=== PATIENT | female | born 1990 | race Caucasian/White ===

== ENCOUNTER 2021-08-15 16:54 | Observation (INO) ==
[2021-08-15 10:48] LABS: Basophils % 0.2 %; Eosinophils # 0.1 K/mcL (0.0-0.6); Eosinophils % 0.5 %; Hematocrit 37.6 % (35.3-44.9); Hemoglobin 12.4 g/dL (11.5-15.4); Immature Granulocytes % 0.6 % (0-4); Lymphocytes # 1.3 K/mcL (0.6-4.6); Lymphocytes % 13.6 %; Mean Corpuscular Hemoglobin 30.2 pg (28.0-33.3); Mean Corpuscular Volume 91.7 fL (83.0-100.0); Mean Platelet Volume 10.1 fL (9.4-12.4); Monocytes # 0.6 K/mcL (0.0-1.3); Monocytes % 6.1 %; Neutrophils # 7.8 K/mcL (1.6-8.9); Platelet Count 165 K/mcL (140-400); Red Cell Distribution Width 14.6 % (11.5-14.5); White Blood Count 9.8 K/mcL (4.3-11.1)
[2021-08-15 10:56] LABS: Amphetamine Screen,Urine Negative ng/mL (Cutoff=1000); Barbiturate Screen,Urine Negative ng/mL (Cutoff=200); Benzodiazepines Screen,Urine Negative ng/mL (Cutoff=200); Cannabinoid Screen,Urine Negative ng/mL (Cutoff = 50); Cocaine Screen,Urine Negative ng/mL (Cutoff= 300); Opiate Screen,Urine Negative ng/mL (Cutoff=300); Phencyclidine Screen,Urine Negative ng/mL (Cutoff=25)
[2021-08-15 11:23] LABS: Influenza A PCR Negative (Negative); Influenza B PCR Negative (Negative); Resp. Syncytial Virus PCR Negative (Negative); SARS-CoV-2 by PCR (In House) Negative (Negative)
[~2021-08-15 16:54] MED LIST: *HR* FentaNYL (PF) 100 MCG/2 ML VIAL IVP PRN; *HR* FentaNYL (PF) 100 MCG/2 ML VIAL ONE; *HR* Morphine Sulfate/PF 10 MG/10 ML AMPUL ONE; *HR* OxyCODONE Immed Rel 5 MG TABLET PO PRN; *HR* Phenylephrine 10 MG/ML VIAL ONE; Acetaminophen IV 1,000 MG/100 ML BAG IVPB ONE; Azithromycin 500 MG in 0.9 % Sodium Chloride 250 ML IVPB PRN; Betamethasone Acet/SodPhos 30 MG/5 ML VIAL IM SCH; CeFAZolin 2,000 MG/120 ML BAG IVPB ONE; D5% in 0.45% NACL 1,000 ML IVC SCH; EPHEDrine 50 MG/ML VIAL ONE; FLU Vac QV 21-22 (6Month+)/PF 0.5 ML SYRINGE IM ONE; Famotidine 20 MG/2 ML VIAL IVP ONE; Famotidine 20 MG/2 ML VIAL IVP PRN; Ketorolac 30 MG/ML VIAL ONE; Metoclopramide 10 MG/2 ML VIAL IVP ONE; Metoclopramide 10 MG/2 ML VIAL IVP PRN; Naloxone 0.4 MG/ML INJ IVP PRN; Ondansetron 4 MG/2 ML VIAL IVP PRN; Ondansetron 4 MG/2 ML VIAL ONE; Promethazine 6.25 MG in Water for inj. (sterile) 20 ML IVPB PRN; Ringers Solution, Lactated 1,000 ML IVC ONE; Ringers Solution, Lactated 1,000 ML ONE
[2021-08-15] MEDS ORDERED: Ringers Solution, Lactated 1,000 ML IVC SCH (17:15)
[2021-08-15] MEDS ORDERED: Ondansetron 4 MG/2 ML VIAL IVP PRN (17:15)
[2021-08-15] MEDS ORDERED: Simethicone 80 MG TAB.CHEW PO PRN (17:15)
[2021-08-15] MEDS ORDERED: Oxytocin 20 units/ LR 1000 mL 20 UNIT/1,000 ML BAG IVC SCH (17:15)
[2021-08-15] MEDS ORDERED: Rho Immune Globulin 1,500 UNIT SYRINGE IM ONE (17:15)
[2021-08-15] MEDS ORDERED: Metoclopramide 10 MG/2 ML VIAL IVP PRN (17:15)
[2021-08-15] MEDS ORDERED: ZOFRAN 4 MG PO PRN (17:15)
[2021-08-15] MEDS: Acetaminophen 325 MG TABLET PO SCH (18:30)
[2021-08-15] MEDS: Ibuprofen 600 MG TABLET PO SCH (18:30)
[2021-08-15] MEDS ORDERED: hydrOXYzine pamoate 25 MG CAPSULE PO PRN (21:27)
[2021-08-15] MEDS: *HR* OxyCODONE Immed Rel 5 MG TABLET PO PRN (21:50)
[2021-08-16] MEDS: Acetaminophen 325 MG TABLET PO SCH ×2 (01:08→08:27)
[2021-08-16] MEDS: Ibuprofen 600 MG TABLET PO SCH ×2 (01:09→08:27)
[2021-08-16 05:01] VITALS: TEMP 99
[2021-08-16 05:11] LABS: Basophils % 0.2 %; Hematocrit 33.3 % (35.3-44.9); Immature Granulocytes % 0.9 % (0-4); Lymphocytes # 1.5 K/mcL (0.6-4.6); Lymphocytes % 10.8 %; Mean Corpuscular Hemoglobin 30.8 pg (28.0-33.3); Mean Corpuscular Volume 93.3 fL (83.0-100.0); Monocytes % 7.3 %; Neutrophils # 11.1 K/mcL (1.6-8.9); Platelet Count 178 K/mcL (140-400); Red Blood Count 3.57 M/mcL (3.82-4.97); Red Cell Distribution Width 14.3 % (11.5-14.5); Segmented Neutrophils % 80.8 %; White Blood Count 13.7 K/mcL (4.3-11.1)
[2021-08-16] MEDS: *HR* OxyCODONE Immed Rel 5 MG TABLET PO PRN (05:51)
[2021-08-16 07:53] VITALS: BP 107/69; PULSE 87; O2SAT 97
[2021-08-16] MEDS ORDERED: Prenatal Vit/FA 1 EACH TABLET PO SCH (09:00)
== END 2021-08-16 10:15 | disposition home or self-care (01) ==
LOC: 1NENULAB → 1NENUOBS 16:54
PROVIDERS: ADMIT Advanced Practice Midwife; ATTEND Advanced Practice Midwife